=== PATIENT | female | born 1945 | race Two or more races ===

== ENCOUNTER 2021-11-05 19:52 | Inpatient (IN) | payer MEDICARE, MEDICAID ==
[~2021-11-05] VITALS: Ht 152.4 cm; Wt 56.6 kg
[~2021-11-05 19:52] MED LIST: BENA20TA13 PO
[2021-11-05 21:50] LABS: Basophils # (auto) 0 10 ^3/uL (0-0.2); Basophils % (auto) 0.3 % (0.0-2.0); Eosinophils # (auto) 0 10 ^3/uL (0-0.8); Hematocrit 35.5 % (36.0-46.0); Hemoglobin 12.3 g/dL (12.2-16.2); Lymphocytes # (auto) 0.6 10 ^3/uL (0.4-5.4); Lymphocytes % (auto) 4.6 % (10.0-50.0); Mean Corpuscular Hemoglobin 30.6 pg (28.0-32.0); Mean Corpuscular Hgb Conc. 34.5 g/dL (32.0-36.0); Mean Corpuscular Volume 88.7 fL (80.0-100.0); Monocytes # (auto) 0.5 10 ^3/uL (0-1.3); Monocytes % (auto) 3.5 % (0.0-12.0); Neutrophils # (auto) 12.5 10 ^3/uL (1.6-8.6); Neutrophils % (auto) 91.6 % (37.0-80.0); Nucleated Red Blood Cells % 0.1 %; Red Blood Cells 4.01 10^6/uL (4.0-5.20); Red Cell Distribution Width 14.1 % (11.8-14.3); White Blood Cell 13.6 10^3/uL (4.4-10.8)
[2021-11-05 21:59] LABS: Albumin 3.9 g/dL (3.4-5.0); BUN/Creatinine Ratio 30.8; Calcium 9.1 mg/dL (8.5-10.1); Potassium 3.2 mmol/L (3.5-5.1)
[2021-11-05 22:02] LABS: Bilirubin, Total 0.7 mg/dL (0.2-1.0); Total Protein 7.4 g/dL (6.4-8.2)
[2021-11-05] MEDS ORDERED: DEXTROSE (50%) 50ML SYRG IV PRN (22:15)
[2021-11-05] MEDS ORDERED: ACETAMINOPHEN 325 MG TAB PO PRN (22:15)
[2021-11-05] MEDS ORDERED: ONDANSETRON HCL 4 MG/2 ML VIAL IV PRN (22:15)
[2021-11-05] MEDS ORDERED: POTASSIUM CHL 20 Meq TABLET PO ONE (22:15)
[2021-11-05 22:28] LABS: INR 0.98 (0.9-1.15); Partial Thromboplastin Time 27.1 sec (23.6-33.0)
[2021-11-05 23:51] LABS: Urine Bacteria NONE SEEN /hpf (None Seen); Urine Blood Negative /uL (Negative); Urine WBC <1 /hpf (0 - 5)
[2021-11-06] MEDS: ACCU-CHEK COMFORT CURVE STRIP VI SCH ×4 (00:26→17:58)
[2021-11-06] MEDS: MORPHINE SULFATE 4 MG/ML SYR/VIAL IV PRN ×3 (04:55→14:08)
[2021-11-06 05:35] VITALS: BP 145/65
[2021-11-06] MEDS: InsuLIN REG 1unit/0.01ml Soln (100units/ml) SC SCH ×4 (06:00→17:57)
[2021-11-06 08:50] LABS: Basophils # (auto) 0.1 10 ^3/uL (0-0.2); Basophils % (auto) 0.6 % (0.0-2.0); Eosinophils # (auto) 0 10 ^3/uL (0-0.8); Eosinophils % (auto) 0.2 % (0.0-7.0); Hematocrit 36.6 % (36.0-46.0); Hemoglobin 12.5 g/dL (12.2-16.2); Lymphocytes # (auto) 1.1 10 ^3/uL (0.4-5.4); Lymphocytes % (auto) 11.3 % (10.0-50.0); Mean Corpuscular Hemoglobin 30.3 pg (28.0-32.0); Mean Corpuscular Hgb Conc. 34.1 g/dL (32.0-36.0); Mean Corpuscular Volume 89.1 fL (80.0-100.0); Monocytes # (auto) 0.6 10 ^3/uL (0-1.3); Monocytes % (auto) 6.1 % (0.0-12.0); Neutrophils # (auto) 8.2 10 ^3/uL (1.6-8.6); Neutrophils % (auto) 81.8 % (37.0-80.0); Red Blood Cells 4.11 10^6/uL (4.0-5.20); Red Cell Distribution Width 14.8 % (11.8-14.3); White Blood Cell 10.1 10^3/uL (4.4-10.8)
[2021-11-06 09:00] VITALS: BP 144/63
[2021-11-06 09:05] LABS: Albumin 3.8 g/dL (3.4-5.0); Calcium 9.3 mg/dL (8.5-10.1); Potassium 3.5 mmol/L (3.5-5.1)
[2021-11-06 09:09] LABS: BUN/Creatinine Ratio 28.9; Bilirubin, Total 1.1 mg/dL (0.2-1.0); Total Protein 7.4 g/dL (6.4-8.2)
[2021-11-06] MEDS ORDERED: PANTOPRAZOLE 40 MG TAB PO SCH (10:00)
[2021-11-06] MEDS: METOPROLOL SUCCINATE XL 50 MG TAB PO SCH (10:04)
[2021-11-06] MEDS: HYDROcodone-ACET 5/325MG TAB PO PRN (10:31)
[2021-11-06 13:00] VITALS: BP 149/65
[2021-11-06] MEDS ORDERED: VANCOMYCIN HCL 1000 MG VL ONE (13:11)
[2021-11-06] MEDS ORDERED: TRANEXAMIC ACID 20 ML ONE (14:30)
[2021-11-06] MEDS ORDERED: BUPIVACAINE W/ EPINEPH 0.25% INJ 50ML MDV ONE (14:30)
[2021-11-06] MEDS ORDERED: KETOROLAC TROMETH 30 MG/ML 1ML VIAL ONE (14:37)
[2021-11-06] MEDS ORDERED: MORPHINE SULF PF 2 MG/2 ML SYRG ONE (14:39)
[2021-11-06 17:00] VITALS: BP 144/54
[2021-11-06 22:00] VITALS: BP 156/76
[2021-11-06] MEDS: DONEPEZIL HYDROCHLORIDE 5 MG TAB PO SCH (22:31)
[2021-11-06] MEDS: ATORVASTATIN 20 MG TAB PO SCH (22:32)
[2021-11-07] VITALS (16 sets, daily range): BP systolic 99–149; BP diastolic 43–86
[2021-11-07] MEDS: ACCU-CHEK COMFORT CURVE STRIP VI SCH ×4 (00:25→17:01)
[2021-11-07] MEDS: InsuLIN REG 1unit/0.01ml Soln (100units/ml) SC SCH ×4 (06:00→17:01)
[2021-11-07] MEDS ORDERED: ceFAZolin 1GM/50ML 100 ML IV ONE (06:22)
[2021-11-07] MEDS ORDERED: MORPHINE SULF PF 2 MG/2 ML SYRG ONE ×2 (06:23→06:48)
[2021-11-07] MEDS ORDERED: MIDAZOLAM HCL 2MG/2ML 2ml VIAL (1mg/ml) ONE (06:36)
[2021-11-07] MEDS ORDERED: fentaNYL CITRATE 100 MCG/2 ML VL ONE (06:36)
[2021-11-07] MEDS ORDERED: TETRACAINE 1% INJ 2 ML VIAL IJ ONE (06:47)
[2021-11-07] MEDS ORDERED: diphenhdrAMINE HCL 50 MG/1 ML VL IV PRN (07:45)
[2021-11-07] MEDS ORDERED: NALOXONE HCL 0.4 MG/ML VIAL IV PRN (07:45)
[2021-11-07] MEDS ORDERED: DexAMETHasone SOD PHOS 10MG/1ML VIAL INJ IV PRN (07:45)
[2021-11-07] MEDS ORDERED: HYDROmorphone HCL 2 MG/ML VL IV PRN (07:45)
[2021-11-07] MEDS ORDERED: ONDANSETRON HCL 4 MG/2 ML VIAL IV PRN (07:45)
[2021-11-07] MEDS ORDERED: NALBUPHINE HCL 10 MG/1ml INJECTION SUBCUT ONE (07:45)
[2021-11-07] MEDS ORDERED: ceFAZolin 1GM/50ML 50 ML IV SCH (08:00)
[2021-11-07] MEDS ORDERED: LACTATED RINGER'S 1,000 ML IV ONE (08:40)
[2021-11-07] MEDS ORDERED: NALOXONE HCL 0.4 MG/ML VIAL IV ONE (08:50)
[2021-11-07] MEDS ORDERED: NALOXONE HCL 0.4 MG/ML VIAL ONE (08:50)
[2021-11-07] MEDS: LACTATED RINGER'S 1,000 ML IV SCH ×2 (09:40→17:00)
[2021-11-07] MEDS: METOPROLOL SUCCINATE XL 50 MG TAB PO SCH (10:00)
[2021-11-07] MEDS: ceFAZolin 1GM/50ML 50 ML IV SCH ×2 (12:09→17:00)
[2021-11-07] MEDS: SODIUM CHLOR 0.9% PF (SALINE LOCK) 10ML VIAL/SYR IV SCH ×2 (14:06→21:33)
[2021-11-07] MEDS ORDERED: ATOR40TA52 PO (15:11)
[2021-11-07] MEDS ORDERED: CYA100I IM (15:11)
[2021-11-07] MEDS ORDERED: DONE5TAB80 PO (15:11)
[2021-11-07] MEDS ORDERED: ASPI1TAB20 PO (15:11)
[2021-11-07] MEDS ORDERED: SERT50TA19 PO (15:11)
[2021-11-07] MEDS ORDERED: BENA-26 PO (15:11)
[2021-11-07] MEDS: HYDROcodone-ACET 5/325MG TAB PO PRN (17:30)
[2021-11-07] MEDS ORDERED: METOCLOPRAMIDE HCL 5MG/ml INJ 2ml VIAL IV PRN (18:30)
[2021-11-07] MEDS: DONEPEZIL HYDROCHLORIDE 5 MG TAB PO SCH (21:33)
[2021-11-07] MEDS: ATORVASTATIN 20 MG TAB PO SCH (21:33)
[2021-11-08] VITALS (12 sets, daily range): BP systolic 121–162; BP diastolic 45–69
[2021-11-08] MEDS: ceFAZolin 1GM/50ML 50 ML IV SCH (01:10)
[2021-11-08] MEDS: ACCU-CHEK COMFORT CURVE STRIP VI SCH ×5 (01:11→21:41)
[2021-11-08] MEDS: InsuLIN REG 1unit/0.01ml Soln (100units/ml) SC SCH ×5 (01:20→21:43)
[2021-11-08] MEDS: LACTATED RINGER'S 1,000 ML IV SCH ×2 (04:00→19:15)
[2021-11-08 06:10] LABS: Basophils # (auto) 0.1 10 ^3/uL (0-0.2); Basophils % (auto) 1.5 % (0.0-2.0); Eosinophils # (auto) 0.3 10 ^3/uL (0-0.8); Eosinophils % (auto) 3.7 % (0.0-7.0); Hematocrit 29.4 % (36.0-46.0); Hemoglobin 10.2 g/dL (12.2-16.2); Lymphocytes # (auto) 0.8 10 ^3/uL (0.4-5.4); Lymphocytes % (auto) 9.5 % (10.0-50.0); Mean Corpuscular Hemoglobin 31.4 pg (28.0-32.0); Mean Corpuscular Hgb Conc. 34.8 g/dL (32.0-36.0); Mean Corpuscular Volume 90.1 fL (80.0-100.0); Monocytes # (auto) 0.7 10 ^3/uL (0-1.3); Monocytes % (auto) 7.6 % (0.0-12.0); Neutrophils # (auto) 6.9 10 ^3/uL (1.6-8.6); Neutrophils % (auto) 77.7 % (37.0-80.0); Nucleated Red Blood Cells % 0.1 %; Red Blood Cells 3.26 10^6/uL (4.0-5.20); Red Cell Distribution Width 14.5 % (11.8-14.3); White Blood Cell 8.9 10^3/uL (4.4-10.8)
[2021-11-08] MEDS: SODIUM CHLOR 0.9% PF (SALINE LOCK) 10ML VIAL/SYR IV SCH ×3 (06:35→22:48)
[2021-11-08 06:42] LABS: Potassium 3.7 mmol/L (3.5-5.1)
[2021-11-08 06:59] LABS: Albumin 2.6 g/dL (3.4-5.0); BUN/Creatinine Ratio 42.6; Bilirubin, Total 1.1 mg/dL (0.2-1.0); Calcium 8.1 mg/dL (8.5-10.1); Total Protein 5.7 g/dL (6.4-8.2)
[2021-11-08] MEDS: HYDROcodone-ACET 5/325MG TAB PO PRN ×2 (08:41→18:52)
[2021-11-08] MEDS: METOPROLOL SUCCINATE XL 50 MG TAB PO SCH (10:00)
[2021-11-08] MEDS: ENOXAPARIN SOD 40 MG/0.4 ML SYRINGE SC SCH (10:00)
[2021-11-08] MEDS: MORPHINE SULFATE 4 MG/ML SYR/VIAL IV PRN (11:18)
[2021-11-08] MEDS: ATORVASTATIN 20 MG TAB PO SCH (22:00)
[2021-11-08] MEDS: DONEPEZIL HYDROCHLORIDE 5 MG TAB PO SCH (22:00)
[2021-11-09 04:51] VITALS: BP 163/61
[2021-11-09] MEDS: SODIUM CHLOR 0.9% PF (SALINE LOCK) 10ML VIAL/SYR IV SCH ×3 (05:46→20:59)
[2021-11-09] MEDS: ACCU-CHEK COMFORT CURVE STRIP VI SCH ×3 (06:00→18:00)
[2021-11-09] MEDS: InsuLIN REG 1unit/0.01ml Soln (100units/ml) SC SCH ×3 (06:00→18:00)
[2021-11-09] MEDS: LACTATED RINGER'S 1,000 ML IV SCH ×2 (06:00)
[2021-11-09 07:40] LABS: Hematocrit 32.7 % (36.0-46.0); Hemoglobin 11.2 g/dL (12.2-16.2)
[2021-11-09] MEDS: HYDROcodone-ACET 5/325MG TAB PO PRN ×2 (08:25→20:58)
[2021-11-09 09:00] VITALS: BP 165/98
[2021-11-09] MEDS: METOPROLOL SUCCINATE XL 50 MG TAB PO SCH (10:00)
[2021-11-09] MEDS: ENOXAPARIN SOD 40 MG/0.4 ML SYRINGE SC SCH (10:00)
[2021-11-09 13:00] VITALS: BP 137/59
[2021-11-09 17:00] VITALS: BP 167/62
[2021-11-09] MEDS: ATORVASTATIN 20 MG TAB PO SCH (20:59)
[2021-11-09] MEDS: DONEPEZIL HYDROCHLORIDE 5 MG TAB PO SCH (20:59)
[2021-11-09 21:49] VITALS: BP 166/75
[2021-11-09 22:12] VITALS: BP 151/77
[2021-11-10] MEDS: ACCU-CHEK COMFORT CURVE STRIP VI SCH ×5 (00:10→23:15)
[2021-11-10 05:00] VITALS: BP 158/81
[2021-11-10] MEDS: SODIUM CHLOR 0.9% PF (SALINE LOCK) 10ML VIAL/SYR IV SCH ×4 (05:57→23:16)
[2021-11-10] MEDS: InsuLIN REG 1unit/0.01ml Soln (100units/ml) SC SCH ×5 (05:57→23:15)
[2021-11-10 07:46] LABS: Hemoglobin 10.1 g/dL (12.2-16.2)
[2021-11-10 09:00] VITALS: BP 119/57
[2021-11-10] MEDS: ENOXAPARIN SOD 40 MG/0.4 ML SYRINGE SC SCH (10:00)
[2021-11-10] MEDS: METOPROLOL SUCCINATE XL 50 MG TAB PO SCH (10:00)
[2021-11-10] MEDS: HYDROcodone-ACET 5/325MG TAB PO PRN (11:00)
[2021-11-10 12:27] VITALS: BP 147/63
[2021-11-10] MEDS: MORPHINE SULFATE 4 MG/ML SYR/VIAL IV PRN (13:31)
[2021-11-10 17:00] VITALS: BP 141/61
[2021-11-10] MEDS: DONEPEZIL HYDROCHLORIDE 5 MG TAB PO SCH (21:45)
[2021-11-10] MEDS: ATORVASTATIN 20 MG TAB PO SCH (21:47)
[2021-11-10 22:00] VITALS: BP 174/70
[2021-11-11 05:00] VITALS: BP 144/48
[2021-11-11] MEDS: InsuLIN REG 1unit/0.01ml Soln (100units/ml) SC SCH ×2 (06:00→12:00)
[2021-11-11] MEDS: ACCU-CHEK COMFORT CURVE STRIP VI SCH ×3 (06:01→12:29)
[2021-11-11 09:10] VITALS: BP 149/63
[2021-11-11] MEDS: METOPROLOL SUCCINATE XL 50 MG TAB PO SCH (09:22)
[2021-11-11] MEDS: ENOXAPARIN SOD 40 MG/0.4 ML SYRINGE SC SCH (09:22)
[2021-11-11] MEDS: SODIUM CHLOR 0.9% PF (SALINE LOCK) 10ML VIAL/SYR IV SCH ×2 (14:00→22:06)
[2021-11-11 17:00] VITALS: BP 144/50
[2021-11-11 22:00] VITALS: BP 159/77
[2021-11-11] MEDS: DONEPEZIL HYDROCHLORIDE 5 MG TAB PO SCH (22:09)
[2021-11-11] MEDS: ATORVASTATIN 20 MG TAB PO SCH (22:10)
[2021-11-11] MEDS: HYDROcodone-ACET 5/325MG TAB PO PRN (23:15)
[2021-11-12] MEDS: InsuLIN REG 1unit/0.01ml Soln (100units/ml) SC SCH ×3 (06:00→06:17)
[2021-11-12] MEDS: SODIUM CHLOR 0.9% PF (SALINE LOCK) 10ML VIAL/SYR IV SCH (06:14)
[2021-11-12] MEDS: ACCU-CHEK COMFORT CURVE STRIP VI SCH ×2 (06:18)
[2021-11-12 09:00] VITALS: BP 140/85
[2021-11-12] MEDS: ENOXAPARIN SOD 40 MG/0.4 ML SYRINGE SC SCH (09:33)
[2021-11-12] MEDS: METOPROLOL SUCCINATE XL 50 MG TAB PO SCH (09:33)
== END 2021-11-12 10:46 | DRG 522 ==
LOC: ER 19:54 → OVERFLOW 22:10 → WEST WING 11-06 04:06
PROVIDERS: ADMIT Nurse Practitioner; ATTEND Family Medicine
PROC: 0SRR0J9 Replacement of Right Hip Joint, Femoral Surface with Synthetic Substitute, Cemented, Open Approach (ICD-10-PCS; principal; 2021-11-07 06:50)
DX: S72.001A Fracture of unspecified part of neck of right femur, initial encounter for closed fracture (principal); E87.6 Hypokalemia; W01.0XXA Fall on same level from slipping, tripping and stumbling without subsequent striking against object, initial encounter; E11.21 Type 2 diabetes mellitus with diabetic nephropathy; I10 Essential (primary) hypertension; F03.90 Unspecified dementia, unspecified severity, without behavioral disturbance, psychotic disturbance, mood disturbance, and anxiety; E78.00 Pure hypercholesterolemia, unspecified; Z20.822 Contact with and (suspected) exposure to COVID-19; Y93.89 Activity, other specified; Y92.89 Other specified places as the place of occurrence of the external cause; Y99.8 Other external cause status; Z90.49 Acquired absence of other specified parts of digestive tract; Z87.891 Personal history of nicotine dependence
CPT/HCPCS: 36415; 71045; 72170; 80053; 81001; 82962; 85014; 85018; 85025; 85610; 85730; 86850; 86900; 86901; 93005; 93306; 97116; 97163; 97530; G0378; J0690; J1815; J1885; J2250; J2405